=== PATIENT | female | born 1925 | race Caucasian/White ===

== ENCOUNTER → 2016-07-19 | Outpatient (CLI) | payer OTHER ==
[~2016-07-19] MED LIST: ACET1TAB84 PO; ASPCH81 PO; B-COCAP2 PO; CALC0.2510 PO; CHOL200010 PO; CMD5 PO; CYAN100020 PO; GLC5 PO; GLIP5TAB3 PO; GLYCDRO6 OPR; MVC20 PO; NRV5 PO; NYSTCRE11 TOP; SODI2SOL OPL; SODI650T8 PO; TPRSR50 PO; TRAM-10 PO; [UNRECOGNIZED DRUG - CODE] MT
[2016-07-19 10:37] LABS: PROTHROMBIN TIME (PATIENT) 75.1 SECONDS (9.0-12.0)
[2016-07-19 10:45] LABS: INR 6.5 (0.9-1.1)
== END | disposition home or self-care (01) ==
LOC: C.LABFOXAN 09:57
PROVIDERS: ATTEND Internal Medicine
DX: I48.92 Unspecified atrial flutter (principal)

== ENCOUNTER → 2016-07-21 | Outpatient (CLI) | payer OTHER ==
[2016-07-21 10:47] LABS: PROTHROMBIN TIME (PATIENT) 53.5 SECONDS (9.0-12.0)
[2016-07-21 11:28] LABS: INR 4.7 (0.9-1.1)
== END ==
LOC: C.LABFOXAN 09:20
PROVIDERS: ATTEND Internal Medicine
DX: I48.91 Unspecified atrial fibrillation (principal)

== ENCOUNTER → 2016-07-23 | Outpatient (CLI) | payer OTHER ==
[2016-07-23 08:53] LABS: INR 2.3 (0.9-1.1)
== END ==
LOC: C.LABFOXAN 08:02
PROVIDERS: ATTEND Internal Medicine
DX: I48.92 Unspecified atrial flutter (principal)

== ENCOUNTER → 2016-08-16 | Outpatient (CLI) | payer OTHER ==
[2016-08-16 10:32] LABS: BLOOD UREA NITROGEN 44 mg/dl (7-18); BUN/CREATININE RATIO 9.7 (10-20); CALCIUM 9.3 mg/dl (8.5-10.1); CARBON DIOXIDE 21 mmol/L (21-32); CHLORIDE 101 mmol/L (98-107); GLUCOSE 81 mg/dl (70-99); POTASSIUM 4.5 mmol/L (3.5-5.1); SODIUM 135 mmol/L (136-145)
== END | disposition home or self-care (01) ==
LOC: C.LABFOXAN 09:17
PROVIDERS: ATTEND Internal Medicine
DX: I50.9 Heart failure, unspecified (principal)

== ENCOUNTER → 2016-09-15 | Outpatient (CLI) | payer OTHER ==
--- NOTE | 2016-09-16 07:41 | CODING QUERY NO DIAGNOSIS ---
: 1925 TREATMENT RENDERED WITHOUT A DIAGNOSIS To promote full compliance with coding requirements relating to patient care, physician participation is requested in all cases of material controller uncertainty. Please assist us with providing a diagnosis/symptom for the test(s) below: A diagnosis/symptom was not documented on your Order. A valid diagnosis/symptom is required to bill all insurances. Please remember that we are unable to code a diagnosis of rule out, probable, possible, questionable, or suspected. Tests that require a diagnosis: DOS: 09/15/16 * C Diff Toxin B Gene DIAGNOSIS: Provider Signature: Date: Thank you [facility] Once completed, please kindly fax back to [phone] For questions please call [phone]
== END ==
LOC: C.LABFOXAN 13:21
PROVIDERS: ATTEND Internal Medicine
DX: R19.7 Diarrhea, unspecified (principal)